=== PATIENT | female | born 1940 | race African-American/Black ===

== ENCOUNTER 2017-02-11 18:55 | Emergency (ER) | payer OTHER ==
[~2017-02-11] VITALS: Ht 170.2 cm; Wt 91.0 kg
--- NOTE | ~2017-02-11 | CR72 ---
[facility] A Service of [facility] & [facility] RADIOLOGY TEXT RESULTS PATIENT: KAILEE SMITH LOCATION: [facility] : 42 UNIT #: [id number] AGE: [address]: Jason Rodriguez MD SEX: F ORDER DR: [id number] [facility] [address] [place], [place] [address] [id number] E MR#: [id number] Acc #: [id number] NAME: KAILEE SMITH : 1940 SEX: F STUDY DATE/TIME: 02/11/2017 19:25 UNIT: [facility] ROOM: STUDY DESCRIPTION: CR Chest Single View Portable Attending Physician: Jason Rodriguez M.D. Ordering Physician: Jason Rodriguez M.D. Primary Care Physician: Gee Gonzalez M.D. MEDICAL IMAGING REPORT This report is preliminary unless electronic signature is present EXAM Single view chest INDICATIONS Shortness of air. Bilateral lower extremity swelling and pain. FINDINGS Single portable AP view chest compared to 05/22/2015 and 04/03/2016. The heart and mediastinal contours normal. Lungs are clear. No pleural effusion. There is mild elevation of the right hemidiaphragm, unchanged. IMPRESSION No acute cardiopulmonary findings. Dictated by... Braxton Kirby M.D. THIS IS AN ELECTRONICALLY VERIFIED REPORT Braxton Kirby M.D. at 02/12/2017 8:13 AM Rose/clementina TD: 02/12/2017 08:03 JOB #: [id number] MEDICAL IMAGING REPORT Page 1 of 1 COPY
--- NOTE | ~2017-02-11 | EKG ---
PATIENT: KAILEE SMITH UNIT #: [id number] Ventricular Rate: 58 BPM Atrial Rate: 58 BPM P-R Interval: 154 ms QRS Duration: 80 ms Q-T Interval: 424 ms QTC Calculation(Bezet): 416 ms P [place]: 11 degrees Calculated R [place]: 31 degrees Calculated T [place]: 21 degrees Diagnosis Line: Sinus bradycardia Diagnosis Line: Otherwise normal ECG Diagnosis Line: When compared with ECG of 03-APR-2016 18:34, Diagnosis Line: No significant change was found Diagnosis Line: Confirmed by BEAU LOCO MD ([id number]) on Diagnosis Line: 02/12/2017 8:07:31 AM INTERPRETING MD: BERONICA BUCKLEY
[~2017-02-11 18:55] MED LIST: ALPRAZOLAM; AMOXICILLIN500 M1 PO; BACLOFEN10 MG; BUTALBITAL; CALCITRIOL0.25 MCG PO; COLACE PO; DIOVAN; ESTRADIOL1 MG PO; FERROUS SU324 ( 65 ) PO; FOLIC ACID1 MG PO; FUROSEMIDE40 MG PO; GABAPENTIN; GABAPENTIN300 M2 PO; GABAPENTIN300 MG PO; HCTZ; HUMALOG MIX 75/10 ML; HUMULIN 70/30 V10 ML SUBQ; HUMULIN 70100 UNITS/; HYDROCODON-ACE1 EAC9 PO; HYDROCODONE-APA1 T30; HYDROXYZINE HCL10 MG PO; INDOMETHACIN75 MG; KCL; LASIX; LASIX PO; LASIX80 MG PO; LEVOTHYROXINE50 MCG PO; LISINOPRIL; LISINOPRIL-HCTZ1 T15 PO; LOPRESSOR; LORTAB 10-3251 EACH PO; LORTAB 10-5001 EACH PO; MIRTAZAPINE30 M1 PO; NAPROXEN PO; NEURONTIN100 MG PO; NEURONTIN300 MG PO; NO MEDICATIONS; OMEPRAZOLE; OMEPRAZOLE20 M2 PO; PRAVACHOL20 MG PO; PRILOSEC20 MG PO; PROMETRIUM PO; PROPYLTHIOURACIL; SIMVASTATIN; SYNTHROID; TAPAZOLE10 MG PO; TEMAZEPAM30 MG PO; TOPROL XL 50 MG50 MG PO; TYLENOL #3 PO; VICODIN PO; ZOCOR; ZOCOR80 MG PO; [UNRECOGNIZED DRUG - OTHER]
[2017-02-11 19:55] LABS: URINE SOURCE CLEAN CATCH
[2017-02-11 20:01] LABS: BASOPHIL% 0.5 % (0-2.5); EOSINOPHIL# 0.2 X10e3 (0-0.7); EOSINOPHIL% 2.2 % (0.0-7.0); HEMATOCRIT 31.4 % (35.0-45.0); HEMOGLOBIN 10.2 gm/dL (12.0-16.0); LYMPHOCYTE% 26.1 % (17.0-45.0); MEAN CELL VOLUME 92.3 FL (83-96); MEAN CORPUSCULAR HGB CONC 32.6 g/dL (30-36); MEAN PLATELET VOLUME 8.6 FL (6.5-11.5); MONOCYTE# 0.4 X10e3 (0-1.0); MONOCYTE% 5.7 % (3.0-12.0); NEUTROPHIL# 5.1 X10e3 (1.5-7.1); NEUTROPHIL% 65.5 % (40-75); PLATELET COUNT 164 X10e3 (140-420); RED BLOOD COUNT 3.41 X10e (3.90-5.30); RED CELL DISTRIBUTION WIDTH 13.7 % (11.0-15.5); WHITE BLOOD COUNT 7.7 X10e3 (4.0-10.5)
[2017-02-11 20:03] LABS: DIFF IND NO
[2017-02-11 20:09] LABS: URINE APPEARANCE CLEAR; URINE BILIRUBIN NEG (NEG); URINE BLOOD NEG (NEG); URINE COLOR YELLOW; URINE GLUCOSE NEG (NEG); URINE KETONE NEG (NEG); URINE LEUKOCYTE ESTERASE NEG (NEG); URINE NITRATE NEG (NEG); URINE PROTEIN NEG (NEG); URINE SPECIFIC GRAVITY 1.019 (1.003-1.035); URINE UROBILINOGEN 0.2 MG/DL (NEG)
[2017-02-11 20:18] LABS: CULTURE INDICATED? NO
[2017-02-11 20:21] LABS: ALBUMIN SERUM 3.6 g/dL (3.5-5.0); BILIRUBIN, DIRECT 0.1 mg/dL (0.0-0.2); BILIRUBIN,INDIRECT 0.2 mg/dL (0.0-0.9); BILIRUBIN,TOTAL 0.3 mg/dL (0.2-2.0); BUN/CREATININE RATIO 10.58; CREATININE SERUM 1.7 mg/dL (0.6-1.4); GLOM FILT RATE Estimated 33.6 mL/min (>60); POTASSIUM 3.8 mmol/L (3.5-5.1); PROTEIN TOTAL SERUM 6.8 g/dL (6.0-8.3)
[2017-02-11] MEDS ORDERED: GABAPENTIN300 M2 PO (21:39)
== END 2017-02-11 22:07 | disposition home or self-care (01) ==
LOC: CED 18:55
PROVIDERS: Emergency Medicine
DX: R60.0 Localized edema (principal); E78.5 Hyperlipidemia, unspecified; E11.65 Type 2 diabetes mellitus with hyperglycemia; I50.9 Heart failure, unspecified; Z91.14 Patient's other noncompliance with medication regimen; Z79.899 Other long term (current) drug therapy
CPT/HCPCS: 36415; 71010; 80048; 80076; 81003; 82947; 83880; 84443; 85025; 93005; 96360; 99284